=== PATIENT | male | born 1965 | race Caucasian/White ===

== ENCOUNTER 2017-02-11 10:21 | Emergency (ER) | payer MEDICARE, OTHER ==
[~2017-02-11] VITALS: Ht 185.4 cm; Wt 90.0 kg
[~2017-02-11 10:21] MED LIST: ADVA250A INH; FENO1TAB76 PO; GEOD80CA PO; LEXA20TA PO; METO10TA PO; PROP10TA26 PO; PROT40TA PO; SUMA100T2 PO; TOPI200 PO; ZOCO10TA PO
[2017-02-11 10:22] VITALS: BP 171/120; PULSE 74; RESP 18; TEMP 98.7; O2SAT 94
[2017-02-11 10:51] VITALS: BP 171/121; PULSE 69
--- NOTE | 2017-02-11 11:25 | PD ---
HPI Chief Complaint: Musculoskeletal Complaint Time Seen by Provider: 11:25 Travel History International Travel<30 days: No Contact w/Intl Traveler<30days: No Traveled to known affect area: No History of Present Illness HPI 51-year-old male with a history of hypertension and seizure disorder presents to the emergency department for evaluation of right arm pain and ear itching. The patient states that he has had right arm pain from his shoulder to his elbow for the past 2 months. Denies any injury or trauma. States that the pain is aggravated with lifting his right shoulder and alleviated with holding his right arm still. He describes the pain as a sharp pain. He denies any numbness or tingling, weakness, swelling. States he has not taken anything for his symptoms so far. He also complains of recurrent cerumen impaction bilaterally and states that his right ear has been itching and irritated recently and he thinks he has earwax buildup. He denies any fever, chills, nausea, vomiting, cough or cold symptoms, hearing loss. The patient recently moved here from [place]. No other complaints. 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) Diminished Hearing: No Endocrine: No Genitourinary: No Hypertension: Yes Immune Disorder: No Musculoskeletal: No Neurologic: Yes Psychiatric: Yes (BIPOLAR) Reproductive: No Respiratory: Yes (asthma, copd) Migraines: Yes Seizures: Yes Past Surgical History Abdominal Surgery: Yes (HERNIA REPAIR) Other Surgery: Yes (HERNIA) Social History Alcohol Use: No Tobacco Use: Yes (2-3 A DAY) Substance Use: No Allergies-Medications (Allergen,Severity, Reaction): Coded Allergies: No Known Allergies (Verified , 02/11/17) Reported Meds & Prescriptions Reported Meds & Active Scripts Active Reported Imitrex (Sumatriptan Succinate) 100 Mg Tab 100 Mg PO ONCE PRN If a satisfactory response has not been obtained at 2 hours, a second dose may be administered Propranolol (Propranolol HCl) 80 Mg Tab 80 Mg PO DAILY Advair Diskus Inh (Fluticasone-Salmeterol Inh) 250-50 Mcg/Blist Aer 1 Puff INH BID Rinse mouth after use. Omeprazole 40 Mg Cap 40 Mg PO DAILY Review of Systems Except as stated in HPI: all other systems reviewed are Neg Physical Exam Narrative GENERAL: Well-nourished and well-developed pleasant male patient in no acute distress who is nontoxic appearing. SKIN: Warm and dry. HEAD: Normocephalic and atraumatic. EYES: No injection, drainage, or hyphema noted. PERRLA. EOMI. ENT: No nasal drainage noted. Oropharynx is clear. Left ear canal is slightly erythematous, tympanic membranes within normal limits. Right ear canal is erythematous with cerumen impaction. NECK: Supple and the trachea is midline. CARDIOVASCULAR: Regular rate and rhythm. RESPIRATORY: Breath sounds are equal bilaterally with no accessory muscle use, wheezing, rhonchi, or crackles. GASTROINTESTINAL: Abdomen is soft, non-tender, and nondistended. MUSCULOSKELETAL: Mild tenderness to palpation of right anterior shoulder, pain aggravated with lifting the right shoulder above 90. No pain elicited with range of motion of the elbow. Radial pulses 2+ bilaterally. Capillary refill is within normal limits. Strength 5/5 in upper extremities and equal bilaterally. No obvious deformities, swelling, cyanosis, or ecchymosis is present throughout the upper and lower extremities. Patient has full range of motion without any signs of neurovascular compromise. NEUROLOGICAL: Awake, alert, and oriented. Normal speech and gait. Cranial nerves are grossly intact. Data Data Last Documented VS Vital Signs Date Time Temp Pulse Resp B/P Pulse Ox O2 Delivery O2 Flow Rate FiO2 02/11/17 11:34 156/106 02/11/17 10:51 69 02/11/17 10:22 98.7 18 94 Orders Splint Or Brace Apply/Monitor (02/11/17 11:24) Ear Irrigation (02/11/17 11:25) MDM Medical Decision Making Medical Screen Exam Complete: Yes Emergency Medical Condition: Yes Differential Diagnosis Shoulder strain versus ligamentous injury versus muscle strain versus radiculopathy versus cerumen impaction versus otitis externa Narrative Course 51-year-old male presents to the emergency department for evaluation of right arm pain and right ear itching and irritation. Patient is afebrile. He is hypertensive with a blood pressure 171/121 however did not take his blood pressure medication this morning. Otherwise vital signs are within normal limits. Ear irrigation is performed. The right tympanic membrane is within normal limits. He does appear to have otitis externa bilaterally. Patient is offered a sling for comfort. His shoulder pain is likely ligamentous in etiology. Discussed supportive care with the patient. He'll be prescribed naproxen for pain and Cortisporin otic drops. Blood pressure is now 156/106. Instructed to follow-up as an outpatient with his PCP. Patient verbalizes understanding and agreement with treatment plan. Diagnosis Primary Impression: Right shoulder pain Qualified Code: M25.511 - Acute pain of right shoulder Additional Impression: Otitis externa Qualified Code: H60.503 - Acute otitis externa of both ears, unspecified type Referrals: [facility] Primary Care Physician Patient Instructions: General Instructions, Shoulder Pain (ED) Additional Instructions: Sling for comfort. Remove arm from sling multiple times throughout the day and perform stretches. Apply heat to help alleviate symptoms. Take medication as prescribed with food and a full glass of water. Follow-up with your Primary Care Physician. Return to the ED for any acute worsening of symptoms. Med/Other Pt SpecificInfo: Prescription(s) given Scripts Phaxwmji-Ypizfpazz-JB Otic Drops (Cortisporin HC Otic Drops)3.5-10,000-1 Mg- Units-% Soln4 Drop EACH EAR QID 7 Days Ref 0 Prov:Raad Ragland MD 02/11/17 Naproxen 500 Mg Ycg317 Mg PO BID 7 Days Ref 0 Prov:Raad Ragland MD 02/11/17 Disposition: 01 DISCHARGE HOME Condition: Stable Zahida Rust February 11, 2017 11:25
[2017-02-11] MEDS ORDERED: OMEP40CA2 PO (11:27)
[2017-02-11] MEDS ORDERED: IMIT100T PO (11:27)
[2017-02-11] MEDS ORDERED: PROP80TA PO (11:27)
[2017-02-11] MEDS ORDERED: ADVA250A INH (11:27)
[2017-02-11 11:34] VITALS: BP 156/106
[2017-02-11] MEDS ORDERED: NAPR500T PO (12:21)
[2017-02-11] MEDS ORDERED: CORT1SOL EACH EAR (12:21)
== END 2017-02-11 12:41 | disposition home or self-care (01) ==
LOC: NEPD 10:21
DX: M25.511 Pain in right shoulder (principal); H60.503 Unspecified acute noninfective otitis externa, bilateral
CPT/HCPCS: 99283

== ENCOUNTER 2017-02-20 21:34 | Emergency (ER) | payer MEDICARE, MEDICAID ==
[~2017-02-20] VITALS: Ht 185.4 cm; Wt 86.0 kg
[~2017-02-20 21:34] MED LIST changes: +CORT1SOL EACH EAR; -FENO1TAB76 PO; -GEOD80CA PO; +IMIT100T PO; -LEXA20TA PO; -METO10TA PO; +NAPR500T PO; +OMEP40CA2 PO; -PROP10TA26 PO; +PROP80TA PO; -PROT40TA PO; -SUMA100T2 PO; -TOPI200 PO; -ZOCO10TA PO
[2017-02-20 21:35] VITALS: BP 171/114; PULSE 96; RESP 18; TEMP 99.3; O2SAT 98
--- NOTE | 2017-02-20 22:51 | PD ---
HPI Chief Complaint: ENT Complaint Time Seen by Provider: 22:51 Travel History International Travel<30 days: No Contact w/Intl Traveler<30days: No Traveled to known affect area: No History of Present Illness HPI 51-year-old male presents to emergency department for evaluation of left ear pain and muffled hearing. Patient denies trauma. No fever or chills. This has been this way since this morning. States it has happened before. Denies any other symptoms at this time. 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) Diminished Hearing: No Endocrine: No Genitourinary: No Hypertension: Yes Immune Disorder: No Musculoskeletal: No Neurologic: Yes Psychiatric: Yes (BIPOLAR) Reproductive: No Respiratory: Yes (asthma, copd) Migraines: Yes Seizures: Yes Past Surgical History Abdominal Surgery: Yes (HERNIA REPAIR) Other Surgery: Yes (HERNIA) Social History Alcohol Use: No Tobacco Use: No Substance Use: No Allergies-Medications (Allergen,Severity, Reaction): Coded Allergies: No Known Allergies (Verified , 02/11/17) Reported Meds & Prescriptions Reported Meds & Active Scripts Active Cortisporin HC Otic Drops (Ziqiczqf-Hbmfewmhz-UY Otic Drops) 3.5-10,000-1 Mg- Units-% Soln 4 Drop EACH EAR QID 7 Days Naproxen 500 Mg Tab 500 Mg PO BID 7 Days Reported Imitrex (Sumatriptan Succinate) 100 Mg Tab 100 Mg PO ONCE PRN If a satisfactory response has not been obtained at 2 hours, a second dose may be administered Propranolol (Propranolol HCl) 80 Mg Tab 80 Mg PO DAILY Advair Diskus Inh (Fluticasone-Salmeterol Inh) 250-50 Mcg/Blist Aer 1 Puff INH BID Rinse mouth after use. Omeprazole 40 Mg Cap 40 Mg PO DAILY Review of Systems Except as stated in HPI: all other systems reviewed are Neg Physical Exam Narrative GENERAL: Well-nourished, well-developed patient in no acute distress SKIN: Focused skin assessment warm/dry. HEAD: Normocephalic. No mastoid tenderness EARS: Bilateral pinnae appear within normal limits. Bilateral cerumen impaction is initially obscuring my vision of the tympanic membranes. Following irrigation and curette removal of cerumen, the left external canal is extremely reddened, irritated. Both tympanic membranes are dull but without perforation or significant erythema. EYES: No scleral icterus. No injection or drainage. NECK: Supple, trachea midline. No JVD or lymphadenopathy. CARDIOVASCULAR: Regular rate and rhythm without murmurs, gallops, or rubs. RESPIRATORY: Breath sounds equal bilaterally. No accessory muscle use. MUSCULOSKELETAL: No cyanosis, or edema. BACK: Nontender without obvious deformity. No CVA tenderness. Data Data Last Documented VS Vital Signs Date Time Temp Pulse Resp B/P Pulse Ox O2 Delivery O2 Flow Rate FiO2 02/20/17 21:35 99.3 96 18 171/114 98 Orders Zftjjqjk-Qlaadlin-Mc Otic Susp (Cortispo (02/20/17 23:00) MDM Medical Decision Making Medical Screen Exam Complete: Yes Emergency Medical Condition: Yes Medical Record Reviewed: Yes Differential Diagnosis Cerumen impaction versus otitis externa versus otitis media Narrative Course 51-year-old male presents to emergency department for evaluation of muffled hearing. Patient has bilateral cerumen impaction. The external canal of the left ear is significantly erythematous. Patient will be started on Heavenly drops. He is encouraged follow-up primary care provider. He agrees to return immediately with any acute worsening of symptoms. Diagnosis Primary Impression: Bilateral impacted cerumen Additional Impression: Otitis externa Qualified Code: H60.502 - Acute otitis externa of left ear, unspecified type Referrals: [facility] / [facility] Specialist Primary Care Physician Patient Instructions: Cerumen Impaction (ED), General Instructions, Otitis Externa (ED) Additional Instructions: Avoid foreign bodies in your ear Avoid Q-tip use Iyik-oyt-bgvdgtz D-brox drops as directed on the package may help to reduce your ear wax Continue antibiotic drops as already prescribed Tylenol and/or ibuprofen as structure in the package as needed for pain Return immediately to the emergency department with any acute worsening of symptoms Med/Other Pt SpecificInfo: No Change to Meds Disposition: 01 DISCHARGE HOME Condition: Stable SuazoCiara goodsonchhaya DAVIS February 20, 2017 22:51
[2017-02-20] MEDS ORDERED: NEOMYCIN/POLYMYXIN/HYDROCORT OTIC SUSP 10 ML BTL EACH EAR ONE (23:00)
== END 2017-02-20 23:53 | disposition home or self-care (01) ==
LOC: NEPD 21:34
DX: H61.23 Impacted cerumen, bilateral (principal); H60.92 Unspecified otitis externa, left ear; J45.909 Unspecified asthma, uncomplicated; I10 Essential (primary) hypertension
CPT/HCPCS: 69210; 99282

== ENCOUNTER 2017-03-01 17:32 | Emergency (ER) | payer MEDICARE, MEDICAID ==
[~2017-03-01] VITALS: Ht 185.4 cm; Wt 100.0 kg
[2017-03-01 17:33] VITALS: BP 176/119; PULSE 86; RESP 16; TEMP 98.4; O2SAT 98
[2017-03-01 18:10] VITALS: BP 160/99; PULSE 76
[2017-03-01] MEDS ORDERED: LEVI10TA PO (18:26)
--- NOTE | 2017-03-01 18:26 | PD ---
HPI Chief Complaint: Headache Time Seen by Provider: 18:20 Travel History International Travel<30 days: No Contact w/Intl Traveler<30days: No Traveled to known affect area: No History of Present Illness HPI 51-year-old male presents emergency Department with complaint of a generalized headache 5 days. History of migraine headaches since he was 11 years old. This headache is similar to past headaches. Headache is intermittent and fluctuates in intensity. Worsening of intensity today of the headache. Rates his headache 8/10. Has been taking aspirin with good relief of headache, but unrelieved with aspirin today. Says when he comes to the hospital for his headache they usually give him "a cocktail " and it makes his headache go away. Has history of being on Imitrex for his headache. 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 Has hypertension and takes propanolol and Levectra and has taken his medications today and as prescribed. He does report feeling flushing and diaphoresis, that is not normal for him. Denies nausea, vomiting. Denies fever. Denies focal deficits or weakness. No known allergies. Has no other medical complaints. No other modifying factors or associated signs and symptoms. 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) Diminished Hearing: No Endocrine: No Genitourinary: No Hypertension: Yes Immune Disorder: No Musculoskeletal: No Neurologic: Yes Psychiatric: Yes (BIPOLAR) Reproductive: No Respiratory: Yes (ASTHMA) Migraines: Yes Seizures: Yes Past Surgical History Abdominal Surgery: Yes (HERNIA REPAIR) Other Surgery: Yes (HERNIA) Social History Alcohol Use: No Tobacco Use: No Substance Use: No Allergies-Medications (Allergen,Severity, Reaction): Coded Allergies: No Known Allergies (Verified , 02/11/17) Reported Meds & Prescriptions Reported Meds & Active Scripts Active Flexeril (Cyclobenzaprine HCl) 10 Mg Tab 10 Mg PO TID PRN 7 Days Zofran Odt (Ondansetron Odt) 4 Mg Tab 4 Mg SL Q6HR PRN 3 Days Naproxen 500 Mg Tab 500 Mg PO BID 7 Days Reported Levitra (Vardenafil) 10 Mg Tab 10 Mg PO DAILY PRN Propranolol (Propranolol HCl) 80 Mg Tab 80 Mg PO DAILY Advair Diskus Inh (Fluticasone-Salmeterol Inh) 250-50 Mcg/Blist Aer 1 Puff INH BID Rinse mouth after use. Omeprazole 40 Mg Cap 40 Mg PO DAILY Review of Systems Except as stated in HPI: all other systems reviewed are Neg Physical Exam Narrative GENERAL: Well-nourished, well-developed male patient, in no acute distress; sitting and well lit room and appears very comfortable SKIN: Warm and dry. Diaphoretic. HEAD: Atraumatic. Normocephalic. No facial droop noted. Tongue midline. EYES: Pupils equal and round at 3 mm with brisk reaction. No scleral icterus. No injection or drainage. PERRLA. EOMI. ENT: Mucosa pink and moist. Airway patent. NECK: Trachea midline. No lymphadenopathy. CARDIOVASCULAR: Regular rate. RESPIRATORY: No accessory muscle use. GASTROINTESTINAL: Rounded. MUSCULOSKELETAL: No obvious deformities. No clubbing. No cyanosis. No edema. NEUROLOGICAL: Awake and alert. Oriented 3. No obvious cranial nerve deficits. Motor grossly within normal limits. Normal speech. No ataxia. No mid -line drift. Finger to nose test normal. Moves all extremities. 5/5 strength to all extremities. PSYCHIATRIC: Appropriate mood and affect; insight and judgment normal. Data Data Last Documented VS Vital Signs Date Time Temp Pulse Resp B/P Pulse Ox O2 Delivery O2 Flow Rate FiO2 03/01/17 18:15 Room Air 03/01/17 18:10 76 160/99 03/01/17 17:[address] Brain W/O Iv Contrast(Rout) (03/01/17 ) Ondansetron Odt (Zofran Odt) (03/01/17 18:30) Diphenhydramine (Benadryl) (03/01/17 18:30) Ketorolac Inj (Toradol Inj) (03/01/17 19:15) Orphenadrine Inj (Norflex Inj) (03/01/17 19:15) Diphenhydramine Inj (Benadryl Inj) (03/01/17 19:15) Prochlorperazine Inj (Compazine Inj) (03/01/17 19:15) [facility] [place] Medical Decision Making Medical Screen Exam Complete: Yes Emergency Medical Condition: Yes Medical Record Reviewed: Yes Differential Diagnosis Migraine headaches, tension headache, cluster headache Narrative Course 51-year-old male with history of migraine headaches with onset of headache 5 days ago that is similar to past headaches. Headache was gradual onset with worsening today. Neuro exam is unremarkable. Patient is sitting in a well lit room and appears comfortable. He is very talkative and interactive during physical exam. His blood pressure is elevated in the ER. Blood pressure recheck 160/99. Patient has taken his blood pressure medications today. He is diaphoretic in the room and complaining of feeling hot. I will do a CT of the head secondary to elevated blood pressure and to rule out intracranial process. CT head ordered. Zofran and Benadryl ordered. 1899: Report given to SUASN Nails at change shift. See her note for final patient disposition. Scripts Cyclobenzaprine (Flexeril)10 Mg Tab10 Mg PO TID PRN (MUSCLE SPASM) 7 Days Ref 0 Prov:Lien Schwartz 03/01/17 Ondansetron Odt (Zofran Odt)4 Mg Tab4 Mg SL Q6HR PRN (Nausea/Vomiting) 3 Days Ref 0 Prov:Lien Schwartz 03/01/17 Zahida Patterson March 01, 2017 18:26
[2017-03-01] MEDS ORDERED: ONDANSETRON ODT 4 MG TAB PO ONE (18:30)
[2017-03-01] MEDS ORDERED: diphenhydrAMINE HCL 50 MG CAP PO ONE (18:30)
--- NOTE | 2017-03-01 18:51 | RADRPT ---
EXAM DATE/TIME: 03/01/2017 18:45 [facility] COMPARISON: No previous studies available for comparison. INDICATIONS : Cephalgia x5 days. RADIATION DOSE: 40.82 CTDIvol (mGy) MEDICAL HISTORY : Seizures. Cardiovascular disease Hypertension. SURGICAL HISTORY : Hernia repair. ENCOUNTER: Initial ACUITY: 4 - 6 days PAIN SCALE: 6/10 LOCATION: cranial TECHNIQUE: Multiple contiguous axial images were obtained of the head. Using automated exposure control and adj ustment of the mA and/or kV according to patient size, radiation dose was kept as low as reasonably a chievable to obtain optimal diagnostic quality images. FINDINGS: CEREBRUM: The ventricles are normal for age. No evidence of midline shift, mass lesion, hemorrhage or acute in farction. No extra-axial fluid collections are seen. POSTERIOR FOSSA: The cerebellum and brainstem are intact. The 4th ventricle is midline. The cerebellopontine angle i s unremarkable. EXTRACRANIAL: The visualized portion of the orbits is intact. SKULL: The calvaria is intact. No evidence of skull fracture. CONCLUSION: No acute disease. Nilton Quinn MD on March 01, 2017 at 18:49 Board Certified Radiologist. This report was verified electronically.
[2017-03-01] MEDS ORDERED: KETOROLAC TROMETHAMINE 30 MG/ML (IVP) VIAL IV PUSH ONE (19:15)
[2017-03-01] MEDS ORDERED: PROCHLORPERAZINE INJ 10 MG/2 ML VIAL IV PUSH ONE (19:15)
[2017-03-01] MEDS ORDERED: ORPHENADRINE INJ 60 MG/2 ML AMP IV ONE (19:15)
[2017-03-01] MEDS ORDERED: diphenhydrAMINE HCL 50 MG/ML VIAL IV PUSH ONE (19:15)
[2017-03-01] MEDS ORDERED: CYCL1TAB29 PO (20:10)
[2017-03-01] MEDS ORDERED: ZOFR4TAB3 SL (20:10)
--- NOTE | 2017-03-01 20:10 | PD ---
Physical Exam Date Seen by Provider: March 01, 2017 Time Seen by Provider: 19:00 Narrative For full history and physical examination please see previous provider's note. I assumed care of this patient at change of shift. Data Data Last Documented VS Vital Signs Date Time Temp Pulse Resp B/P Pulse Ox O2 Delivery O2 Flow Rate FiO2 03/01/17 18:15 Room Air 03/01/17 18:10 76 160/99 03/01/17 17:[address] Brain W/O Iv Contrast(Rout) (03/01/17 ) Ondansetron Odt (Zofran Odt) (03/01/17 18:30) Diphenhydramine (Benadryl) (03/01/17 18:30) Ketorolac Inj (Toradol Inj) (03/01/17 19:15) Orphenadrine Inj (Norflex Inj) (03/01/17 19:15) Diphenhydramine Inj (Benadryl Inj) (03/01/17 19:15) Prochlorperazine Inj (Compazine Inj) (03/01/17 19:15) [facility] Medical Record Reviewed: Yes Supervised Visit with SHOSHANA: No Interpretation(s) Vital Signs Date Time Temp Pulse Resp B/P Pulse Ox O2 Delivery O2 Flow Rate FiO2 03/01/17 18:15 Room Air 03/01/17 18:10 76 160/99 03/01/17 17:33 98.4 86 16 176/119 98 Differential Diagnosis Migraine versus tension headache versus cluster headache versus hemorrhage versus other Narrative Course Patient's 51-year-old male presenting to emergency evaluation of headache ongoing for 5 days. His headache starts in the neck and radiates up the back of the head. Patient feels tightness in his neck musculature. Patient is neurologically intact. BP was elevated on arrival, BP currently 138/92. Patient was given Toradol, Norflex, Compazine, Benadryl. Patient was reassessed approximately one hour after administration reports improvement in his headache symptoms. He will be discharged home with a prescription for Flexeril and Zofran. He is encouraged to follow-up with his primary doctor. Furthermore he was encouraged return to emergency department for any new or worsening symptoms. Patient and verbalized understanding of these instructions. Patient is stable for discharge. Diagnosis Primary Impression: Headache, tension-type Qualified Code: G44.209 - Tension-type headache, not intractable, unspecified chronicity pattern Referrals: Primary Care Physician Patient Instructions: General Instructions, Tension Headache (ED) Additional Instruction: Follow-up with primary care provider Return to emergency department for any new or worsening symptoms Take medications as needed and as directed Med/Other Pt SpecificInfo: Prescription(s) given Scripts Cyclobenzaprine (Flexeril)10 Mg Tab10 Mg PO TID PRN (MUSCLE SPASM) 7 Days Ref 0 Prov:Lien Schwartz 03/01/17 Ondansetron Odt (Zofran Odt)4 Mg Tab4 Mg SL Q6HR PRN (Nausea/Vomiting) 3 Days Ref 0 Prov:Lien Schwartz 03/01/17 Disposition: 01 DISCHARGE HOME Condition: Stable Lien Schwartz March 01, 2017 20:10
== END 2017-03-01 20:38 | disposition home or self-care (01) ==
LOC: NEPD 17:32
DX: G44.209 Tension-type headache, unspecified, not intractable (principal)
CPT/HCPCS: 70450; 96374; 96375; 99285; J0780; J1200; J1885; J2360

== ENCOUNTER 2017-07-16 10:28 | Emergency (ER) | payer MEDICARE, OTHER ==
[~2017-07-16] VITALS: Ht 185.4 cm; Wt 90.0 kg
[~2017-07-16 10:28] MED LIST changes: -CORT1SOL EACH EAR; +CYCL1TAB29 PO; -IMIT100T PO; +LEVI10TA PO; +ZOFR4TAB3 SL
[2017-07-16 10:31] VITALS: BP 149/107; PULSE 74; RESP 17; TEMP 98; O2SAT 96
[2017-07-16] MEDS ORDERED: AMLO5TAB2 PO (11:04)
[2017-07-16] MEDS ORDERED: SODIUM CHLORIDE 0.9% FLUSH 10 ML FLUSH IV FLUSH PRN (11:15)
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
[2017-07-16 12:17] LABS: AUTOMATED NEUTROPHIL # 2.9 TH/MM3 (1.8-7.7); BASOPHIL # 0.1 TH/MM3 (0-0.2); BASOPHIL % 1.3 % (0.0-2.0); EOSINOPHIL # 0.9 TH/MM3 (0-0.4); EOSINOPHIL % 14.4 % (0.0-4.0); HEMO FLAGS DIFF FINAL; LYMPH % 29.1 % (9.0-44.0); LYMPHOCYTE # 1.7 TH/MM3 (1.0-4.8); MEAN CELL VOLUME 90.9 FL (80.0-100.0); MEAN CORPUSCULAR HEMOGLOBIN 30.5 PG (27.0-34.0); MEAN CORPUSCULAR HGB CONC 33.5 % (32.0-36.0); MONO % 6.8 % (0.0-8.0); NEUT % 48.4 % (16.0-70.0); PLATELET COUNT 154 TH/MM3 (150-450); RED BLOOD COUNT 5.72 MIL/MM3 (4.50-5.90); RED CELL DISTRIBUTION WIDTH 13.6 % (11.6-17.2)
[2017-07-16 12:30] LABS: ANION GAP 5 MEQ/L (5-15); AST (GOT) 28 U/L (15-37); BICARBONATE 25.7 MEQ/L (21.0-32.0); BLOOD UREA NITROGEN 12 MG/DL (7-18); CHLORIDE 108 MEQ/L (98-107); GLOMERULAR FILTRATION RATE 97 ML/MIN (>89); POTASSIUM 4.5 MEQ/L (3.5-5.1); SODIUM (NA) 139 MEQ/L (136-145)
[2017-07-16 12:33] LABS: BLOOD, URINE NEG (NEG); COMMENT (UR) CULT NOT INDICATED; CULTURE IF INDICATED CULT NOT INDICATED; GLUCOSE,URINE NEG (NEG); KETONE, URINE NEG (NEG); MUCUS URINE FEW /lpf (OCC); NITRITE,URINE NEG (NEG); PH, URINE 6.5 (5.0-8.5); URINE COLOR YELLOW (YELLW/STRAW)
[2017-07-16 12:34] LABS: ALKALINE PHOSPHATASE 84 U/L (45-117); ALT (GPT) 31 U/L (12-78); TOTAL BILIRUBIN ADULT 0.3 MG/DL (0.2-1.0)
== END 2017-07-16 13:09 | disposition home or self-care (01) ==
LOC: NEPD 10:28
DX: K29.60 Other gastritis without bleeding (principal); K21.9 Gastro-esophageal reflux disease without esophagitis; J45.909 Unspecified asthma, uncomplicated; F31.9 Bipolar disorder, unspecified; I10 Essential (primary) hypertension; G40.909 Epilepsy, unspecified, not intractable, without status epilepticus; Z79.899 Other long term (current) drug therapy; M25.511 Pain in right shoulder; M54.5 Low back pain
CPT/HCPCS: 80053; 81001; 83690; 85025; 99283

== ENCOUNTER 2017-09-09 19:15 | Emergency (ER) | payer MEDICARE, OTHER ==
[~2017-09-09 19:15] MED LIST changes: +AMLO5TAB2 PO; +CYCL10TA PO; -CYCL1TAB29 PO; -NAPR500T PO
[2017-09-09 19:18] VITALS: BP 180/109; PULSE 72; RESP 16; TEMP 98.1; O2SAT 97
[2017-09-09 21:07] VITALS: BP 143/107; PULSE 65; RESP 16; O2SAT 95
== END 2017-09-09 22:03 | disposition left against medical advice (07) ==
LOC: NEPD 19:15
DX: M54.5 Low back pain (principal)